=== PATIENT | male | born 1985 | race Two or more races ===

== ENCOUNTER 2025-02-26 11:17 | Inpatient (IN) | payer OTHER ==
[~2025-02-26] VITALS: Ht 180.3 cm; Wt 62.0 kg
--- NOTE | 2025-02-26 12:37 | ED.PDOC ---
GI ASSESSMENT HPI Comments 39 year old male presents to the ED with a chief complaint of abdominal pain onset 4 days. Patient states he ate fish about 4 days ago, began experiencing diffused abdominal pain. About 3 days ago he began experiencing nausea/vomiting, symptoms have worsen since then is also currently experiencing poor appetite. PMHx HTN. Denies diarrhea, constipation, dizziness, chest pain, fever, chills, cough, congestion, hematemesis, melena. No other symptoms or modifying factors present at this time. Chief Complaint: Abdominal Pain Time Seen by MD: 12:19 Primary Care Provider: GISELE Reviewed Notes: Medications, Allergies Allergies: Coded Allergies: NO KNOWN ALLERGIES (Unverified , 02/26/25) Information Source: Patient Mode of Arrival: Ambulatory Timing: Days Duration: Since onset Prehospital treatment: None Quality: Aching Severity: Moderate Recent: None Recent Hx of: None Pain Location: Diffuse Modifying Factors: Nothing Associated sign and symptoms: Nausea, Vomiting, Abdominal Pain Past Medical History PAST MEDICAL HISTORY: HTN Surgical History: Denies all surgeries Family History Family History: Reviewed,noncontributory to illness, No family hx of Cancer, No family hx of DM, No family hx of Heart melissa, No family hx of HTN, No family hx ofKidney melissa, No family hx of Liver melissa, No family hx of Lung melissa, No family hx of Stroke Social History Smoker: Cigarettes Alcohol: Denies ETOH Use Drugs: Marijuana Lives In: Home Constitutional: denies: chills, diaphoresis, fatigue, fever, malaise, sweats, weakness, others EENTM: denies: blurred vision, double vision, ear bleeding, ear discharge, ear drainage, ear pain, ear ringing, eye pain, eye redness, hearing loss, mouth pain, mouth swelling, nasal discharge, nose bleeding, nose congestion, nose pain, photophobia, tearing, throat pain, throat swelling, voice changes, others Respiratory: denies: cough, hemoptysis, orthopnea, SOB at rest, shortness of breath, SOB with excertion, stridor, wheezing, others Cardiovascular: denies: chest pain, dizzy spells, diaphoresis, Dyspnea on exertion, edema, irregular heart beat, left arm pain, lightheadedness, palpitati ons, PND, syncope, others Gastrointestinal: reports: abdominal pain, nausea, vomiting; denies: abdomen distended, blood streaked bowels, constipated, diarrhea, dysphagia, difficulty swallowing, hematemesis, melena, poor appetite, poor fluid intake, rectal bleeding, rectal pain, others Genitourinary: denies: burning, dysuria, flank pain, frequency, hematuria, incontinence, penile discharge, penile sore, pain, testicle pain, testicle swelling, urgency, others Neurological: denies: dizziness, fainting, headache, left sided numbness, left sided weakness, numbness, paresthesia, pre-existing deficit, right sided numbness, right sided weakness, seizure, speech problems, tingling, tremors, weakness, others Musculoskeletal: denies: back pain, gout, joint pain, joint swelling, muscle pain, muscle stiffness, neck pain, others Integumetry: denies: bruises, change in color, change in hair/nails, dryness, laceration, lesions, lumps, rash, wounds, others Allergic/Immunocompromised: denies: Difficulty Healing, Frequent Infections, Hives, Itching, others Hematologic/Lymphatic: denies: anemia, blood clots, easy bleeding, easy bruising, swollen glands, others Endocrine: denies: excessive hunger, excessive sweating, excessive thirst, excessive urination, flushing, intolerance to cold, intolerance to heat, unexplained weight gain, unexplained weight loss, others Psychiatric: denies: anxiety, bipolar disorder, depression, hopeless, panic disorder, schizophrenia, sleepless, suicidal, others All Other Systems: Reviewed and Negative Physical Exam General Appearance: Moderate Distress, Normal HEENT: Normal ENT Inspection, Pharynx Normal, TMs Normal Neck: Full Range of Motion, Non-Tender, Normal, Normal Inspection Respiratory: Chest Non-Tender, Lungs Clear, No Accessory Muscle Use, No Resp iratory Distress, Normal Breath Sounds Cardiovascular: No Edema, No JVD, No Murmur, No Gallop, Normal Peripheral Pulses, Regular Rate/Rhythm Breast Exam: Deferred Gastrointestinal: No Organomegaly, Non Tender, No Pulsatile Mass, Normal Bowel Sounds, Soft Genitalia: Deferred Pelvic: Deferred Rectal: Deferred Extremities: No calf tenderness, Normal capillary refill, Normal inspection, Normal range of motion, Non-tender, No pedal edema Musculoskeletal : Apperance: Normal Neurologic: Alert, golf club assembler II-XII nml as Tested, No Motor Deficits, Normal Affect, Normal Mood, No Sensory Deficits Cerebellar Function: Normal Reflexes: Normal Skin: Dry, Normal Color, Warm Peripheral Pulses: 3+ Radial (R), 3+ Radial (L) Lymphatic: No Adenopathy Was a procedure done? Was a procedure done?: No GI differential Dx Differential Diagnosis: Constipation, Diverticular disease, Esophagitis, Gastritis/PUD, Gastroenteritis X-Ray, Labs, Meds, VS Vital Signs Date Time Temp Pulse Resp B/P (MAP) Pulse Ox O2 Delivery O2 Flow Rate FiO2 02/26/25 16:35 84 18 111/87 (95) 100 02/26/25 11:17 97.9 76 15 134/64 (87) 97 97.9 Lab Test 02/26/25 13:07 02/26/25 12:55 Range/Units White Blood Count 3.9 L 4.4-10.8 10^3/uL Red Blood Count 5.51 4.5-5.90 10^6/uL Hemoglobin 17.0 13.5-17.5 g/dL Hematocrit 49.3 41.0-53.0 % Mean Corpuscular Volume 89.5 80.0-100.0 fL Mean Corpuscular Hemoglobin 30.8 28.0-32.0 pg Mean Corpuscular Hemoglobin Concent 34.4 32.0-36.0 g/dL Red Cell Distribution Width 13.5 11.8-14.3 % Platelet Count 224 140-450 10^3/uL Mean Platelet Volume 9.2 6.9-10.8 fL Neutrophils (%) (Auto) 47.7 37.0-80.0 % Lymphocytes (%) (Auto) 41.6 10.0-50.0 % Monocytes (%) (Auto) 9.5 0.0-12.0 % Eosinophils (%) (Auto) 0.8 0.0-7.0 % Basophils (%) (Auto) 0.4 0.0-2.0 % Neutrophils # (Auto) 1.8 1.6-8.6 10 ^3/uL Lymphocytes # (Auto) 1.6 0.4-5.4 10 ^3/uL Monocytes # (Auto) 0.4 0-1.3 10 ^3/uL Eosinophils # (Auto) 0 0-0.8 10 ^3/uL Basophils # (Auto) 0 0-0.2 10 ^3/uL Nucleated Red Blood Cells 0.1 % Sodium Level 138 136-145 mmol/L Potassium Level 3.8 3.5-5.1 mmol/L Chloride Level 97 L 98-107 mmol/L Carbon Dioxide Level 34 H 20-31 mmol/L Anion Gap 7 5-15 Blood Urea Nitrogen 21 9-23 mg/dL Creatinine 1.17 0.700-1.30 mg/dL Glomerular Filtration Rate Calc 81 >90 mL/min BUN/Creatinine Ratio 17.9 10.0-20.0 Serum Glucose 97 74-106 mg/dL Calcium Level 10.5 H 8.7-10.4 mg/dL Urine Opiates Screen Neg NEGATIVE Urine Fentanyl Screen Neg NEGATIVE Urine Barbiturates Screen Neg NEGATIVE Urine Phencyclidine Screen Neg NEGATIVE Urine Amphetamines Screen Neg NEGATIVE Urine Benzodiazepines Screen Neg NEGATIVE Urine Cocaine Screen Neg NEGATIVE Urine Cannabinoids Screen Pos NEGATIVE Patient alert. Complaining of abdominal pain. CO2 elevated. Vitals stable. Answering all questions. Continues to have abdominal pain. Smokes marijuana. Explained to the patient but the affects of marijuana. Establish intravenous access. Was given fluids. Was given Flagyl. Continue to monitor. Time of 1ST Reevaluation: 12:49 Reevaluation 1ST: Unchanged Patient Education/Counseling: Diagnosis, Treatment, Prognosis Family Education/Counseling: No Family Present SEPSIS Sepsis Screen Date sepsis recognized/suspect: Feb 26, 2025 Time Sepsis recognized/suspect: 1117 Recent Procedure: No On Antibiotic Therapy: No Respiratory Rate >20: No Heart Rate >90: No Temp<36 C (96.8 F) or >38.3 C: No SBP <90 or MAP <65 mmHG: No New Acute Mental Status Change: No Is the patient on CPAP, BIPAP,: No Vital Signs Date Time Temp Pulse Resp B/P (MAP) Pulse Ox O2 Delivery O2 Flow Rate FiO2 02/26/25 16:35 84 18 111/87 (95) 100 02/26/25 11:17 97.9 76 15 134/64 (87) 97 97.9 Laboratory Tests Test 02/26/25 13:07 White Blood Count 3.9 10^3/uL (4.4-10.8) L Departure 1 Departure Time of Disposition: 17:15 Impression: Primary Impression: Non-specific colitis Additional Impression: Gastroenteritis Disposition: 09 ADMITTED INPATIENT Admit to: Med Surg Condition: Guarded Critical Care Note Critical Care Time?: No Stability Stability form required: No Heart Score Heart Score: Heart Score Response (Comments) Value History N/A 0 EKG N/A 0 Age N/A 0 Risk Factors N/A 0 Troponin N/A 0 Total 0 I personally scribed for HUGO HARP MD ([email or web address]) on 02/26/25 at 12:37. Electronically submitted by Flori Reinoso ([email or web address]). HUGO HARP MD Feb 26, 2025 12:37
[2025-02-26 13:23] LABS: Cannabinoid Screen, Urine Pos (NEGATIVE)
[2025-02-26 13:25] LABS: Amphetamine Screen, Urine Neg (NEGATIVE); Barbiturate Scree,Urine Neg (NEGATIVE); Benzodiazephine Screen, Urine Neg (NEGATIVE); Cocaine Screen, Urine Neg (NEGATIVE); Opiate Scree,Urine Neg (NEGATIVE); Phencyclidine Screen, Urine Neg (NEGATIVE)
[2025-02-26 13:27] LABS: Hematocrit 49.3 % (41.0-53.0); Hemoglobin 17.0 g/dL (13.5-17.5); Mean Corpuscular Hemoglobin 30.8 pg (28.0-32.0); Mean Corpuscular Volume 89.5 fL (80.0-100.0); Nucleated Red Blood Cells % 0.1 %
[2025-02-26 13:31] LABS: Potassium 3.8 mmol/L (3.5-5.1); Sodium 138 mmol/L (136-145)
[2025-02-26 13:32] LABS: Anion Gap 7 (5-15)
[2025-02-26 13:37] LABS: BUN/Creatinine Ratio 17.9 (10.0-20.0); Blood Urea Nitrogen 21 mg/dL (9-23); Glucose 97 mg/dL (74-106)
[2025-02-26 13:38] LABS: Calcium 10.5 mg/dL (8.7-10.4); Carbon Dioxide 34 mmol/L (20-31); Chloride 97 mmol/L (98-107)
[2025-02-26] MEDS ORDERED: MORPHINE SULFATE 4 MG/ML SYR/VIAL IV ONE (17:30)
[2025-02-26] MEDS ORDERED: SODIUM CHLORIDE 0.9% 1,000 ML IV ONE (17:30)
[2025-02-26] MEDS: ONDANSETRON HCL 4 MG/2 ML VIAL IV ONE (17:55)
[2025-02-26] MEDS: SODIUM CHLORIDE 0.9% 1,000 ML IV ONE ×2 (17:55→23:42)
--- NOTE | 2025-02-26 18:40 | DVH ---
Exam: CT CT AB PEL WO CON-NO ORAL OR IV History: colitis Comparison Study: None Technique: Multidetector spiral CT of the abdomen was performed from lung bases to pubic symphysis. Imaging was performed without IV contrast. Axial, coronal and sagittal multiplanar reformats were ob tained from the axial data set by the technologist. Radiation Dose : 1. Abdomen/Pelvis: CTDIvol 5.1 mGy, DLP 252 mGy*cm. Findings: Evaluation of solid organs is limited due to lack of intravenous contrast use. Lung Bases: No acute or significant lung base finding. Normal heart size. No pleural or pericardial effusion. Liver: The liver is normal in size. No focal lesions. Gallbladder and Biliary Tree: Unremarkable Spleen: Unremarkable Pancreas: The pancreas is grossly normal in appearance. Adrenal Glands: Unremarkable Kidneys: No renal calculi or hydronephrosis. There is a 1.7 cm cyst along the left superior renal po le. Bladder: Grossly unremarkable for degree of distention. Bowel: Evaluation of the gastrointestinal tract is limited secondary to minimal intraperitoneal fat a nd lack of contrast. The stomach and proximal duodenum are moderately distended with fluid. No signif icant small or large bowel dilation. No definite bowel wall thickening. A tubular structure is noted in the right lower quadrant which likely represents a normal appendix. There are no secondary signs o f acute appendicitis. Ascites: Absent Lymphadenopathy: No mesenteric, retroperitoneal or periportal lymphadenopathy. Abdominal Wall and Mesentery: Unremarkable. Vasculature: The visualized abdominal aorta is normal in size and caliber. Evaluation of abdominal a nd pelvic vessels is limited due to lack of intravenous contrast. Pelvic Organs: Unremarkable Musculoskeletal: No aggressive focal bony lesions, acute fractures or dislocation. IMPRESSION: No acute abdominal or pelvic findings. Limited evaluation of the gastrointestinal tract due to minimal intraperitoneal fat and lack of contr ast. There is no evidence of bowel obstruction and no definite bowel wall thickening. Radiation optimization: All CT scans at this facility use at least one of these dose optimization brandon hniques: automated exposure control mA and/or kV adjustment per patient size (includes targeted exam s where dose is matched to clinical indication) or iterative reconstruction.
[2025-02-26] MEDS ORDERED: MORPHINE SULFATE INJ 2 MG/ml SYRG IV PRN (19:00)
[2025-02-26] MEDS ORDERED: ACETAMINOPHEN 325 MG TAB PO PRN (19:00)
[2025-02-26] MEDS ORDERED: TEMAZEPAM 15 MG CAP PO PRN (19:00)
[2025-02-26] MEDS ORDERED: ONDANSETRON HCL 4 MG/2 ML VIAL IV PRN (19:00)
[2025-02-26] MEDS ORDERED: HYDROcodone-ACET 5/325MG TAB PO PRN (19:00)
--- NOTE | 2025-02-26 22:11 | DVHHP2 ---
History of Present Illness Reason for Visit: Abdominal pain History of Present Illness 39-year-old male presents for evaluation of abdominal pain. Patient endorses a four day history of sharp pain at the center of his abdomen with associated nausea, vomiting and occasional loose stools. Denies fever or chills. No other acute complaints reported. Past Medical History Hypertension Past Surgical History Denies Family History Noncontributory Smoke: <1 pack per day ALCOHOL: none Drugs: Marijuana Lives: with Family Review of Systems Review of Systems Review of systems are currently negative otherwise addressed in HPI. Allergies: Coded Allergies: NO KNOWN ALLERGIES (Unverified , 02/26/25) Medications Current Medications Medications Dose Ordered Sig/Coleen Route Start Time Stop Time Status Last Admin Dose Admin Pantoprazole Sodium 40 mg DAILY IV 02/27/25 10:00 Acetaminophen/ Hydrocodone Bitart 1 tab Q4HP PRN PO 02/26/25 19:00 Temazepam 15 mg QHSP PRN PO 02/26/25 19:00 Ondansetron HCl 4 mg Q4HP PRN IV 02/26/25 19:00 Acetaminophen 650 mg Q6HP PRN PO 02/26/25 19:00 Morphine Sulfate 2 mg Q6HPRN PRN IV 02/26/25 19:00 Exam Vital Signs Vital Signs Date Time Temp Pulse Resp B/P (MAP) Pulse Ox O2 Delivery O2 Flow Rate FiO2 02/26/25 20:33 97.7 68 16 120/75 (90) 99 97.7 Exam Gen: 39-year-old male in mild distress Skin: Warm, dry, normal color and texture, no rash. HEENT: Normocephalic atraumatic, mucous membranes moist and pink. Neck: Cervical and supraclavicular nodes normal without enlargement, trachea is midline, thyroid gland is normal without masses. Pulmonary: Clear to auscultation and percussion bilaterally. Cardiac: Regular rate and rhythm. No murmur Abdomen: Soft, nontender, nondistended, bowel sounds present all 4 quadrants, no guarding, no rigidity, no organomegaly. Extremities: No cyanosis, clubbing, no edema Neuro: Cranial nerves II through XII grossly intact, normal affect and speech, no focal motor deficits. Labs/Xrays ORDERING PHYSICIAN: HUGO HARP MD PROCEDURE(s): ABPL - CT AB PEL WO CON-NO ORAL OR IV REASON: colitis ORDER NUMBER(s): [id number], ACCESSION NUMBER(s): [id number] Exam: CT CT AB PEL WO CON-NO ORAL OR IV History: colitis Comparison Study: None Technique: Multidetector spiral CT of the abdomen was performed from lung bases to pubic symphysis. Imaging was performed without IV contrast. Axial, coronal and sagittal multiplanar reformats were obtained from the axial data set by the technologist. Radiation Dose : 1. Abdomen/Pelvis: CTDIvol 5.1 mGy, DLP 252 mGy*cm. Findings: Evaluation of solid organs is limited due to lack of intravenous contrast use. Lung Bases: No acute or significant lung base finding. Normal heart size. No pleural or pericardial effusion. Liver: The liver is normal in size. No focal lesions. Gallbladder and Biliary Tree: Unremarkable Spleen: Unremarkable Pancreas: The pancreas is grossly normal in appearance. Adrenal Glands: Unremarkable Kidneys: No renal calculi or hydronephrosis. There is a 1.7 cm cyst along the left superior renal pole. Bladder: Grossly unremarkable for degree of distention. Bowel: Evaluation of the gastrointestinal tract is limited secondary to minimal intraperitoneal fat and lack of contrast. The stomach and proximal duodenum are moderately distended with fluid. No significant small or large bowel dilation. No definite bowel wall thickening. A tubular structure is noted in the right lower quadrant which likely represents a normal appendix. There are no secondary signs of acute appendicitis. Ascites: Absent Lymphadenopathy: No mesenteric, retroperitoneal or periportal lymphadenopathy. Abdominal Wall and Mesentery: Unremarkable. Vasculature: The visualized abdominal aorta is normal in size and caliber. Eval uation of abdominal and pelvic vessels is limited due to lack of intravenous contrast. Pelvic Organs: Unremarkable Musculoskeletal: No aggressive focal bony lesions, acute fractures or dislocation. IMPRESSION: No acute abdominal or pelvic findings. Limited evaluation of the gastrointestinal tract due to minimal intraperitoneal fat and lack of contrast. There is no evidence of bowel obstruction and no definite bowel wall thickening. Radiation optimization: All CT scans at this facility use at least one of these dose optimization techniques: automated exposure control mA and/or kV adjustment per patient size (includes targeted exams where dose is matched to clinical indication) or iterative reconstruction. Labs Test 02/26/25 13:07 02/26/25 12:55 Range/Units White Blood Count 3.9 L 4.4-10.8 10^3/uL Red Blood Count 5.51 4.5-5.90 10^6/uL Hemoglobin 17.0 13.5-17.5 g/dL Hematocrit 49.3 41.0-53.0 % Mean Corpuscular Volume 89.5 80.0-100.0 fL Mean Corpuscular Hemoglobin 30.8 28.0-32.0 pg Mean Corpuscular Hemoglobin Concent 34.4 32.0-36.0 g/dL Red Cell Distribution Width 13.5 11.8-14.3 % Platelet Count 224 140-450 10^3/uL Mean Platelet Volume 9.2 6.9-10.8 fL Neutrophils (%) (Auto) 47.7 37.0-80.0 % Lymphocytes (%) (Auto) 41.6 10.0-50.0 % Monocytes (%) (Auto) 9.5 0.0-12.0 % Eosinophils (%) (Auto) 0.8 0.0-7.0 % Basophils (%) (Auto) 0.4 0.0-2.0 % Neutrophils # (Auto) 1.8 1.6-8.6 10 ^3/uL Lymphocytes # (Auto) 1.6 0.4-5.4 10 ^3/uL Monocytes # (Auto) 0.4 0-1.3 10 ^3/uL Eosinophils # (Auto) 0 0-0.8 10 ^3/uL Basophils # (Auto) 0 0-0.2 10 ^3/uL Nucleated Red Blood Cells 0.1 % Sodium Level 138 136-145 mmol/L Potassium Level 3.8 3.5-5.1 mmol/L Chloride Level 97 L 98-107 mmol/L Carbon Dioxide Level 34 H 20-31 mmol/L Anion Gap 7 5-15 Blood Urea Nitrogen 21 9-23 mg/dL Creatinine 1.17 0.700-1.30 mg/dL Glomerular Filtration Rate Calc 81 >90 mL/min BUN/Creatinine Ratio 17.9 10.0-20.0 Serum Glucose 97 74-106 mg/dL Calcium Level 10.5 H 8.7-10.4 mg/dL Urine Opiates Screen Neg NEGATIVE Urine Fentanyl Screen Neg NEGATIVE Urine Barbiturates Screen Neg NEGATIVE Urine Phencyclidine Screen Neg NEGATIVE Urine Amphetamines Screen Neg NEGATIVE Urine Benzodiazepines Screen Neg NEGATIVE Urine Cocaine Screen Neg NEGATIVE Urine Cannabinoids Screen Pos NEGATIVE SEPSIS Sepsis Screen Date sepsis recognized/suspect: Feb 26, 2025 Time Sepsis recognized/suspect: 1116 Recent Procedure: No On Antibiotic Therapy: No Respiratory Rate >20: No Heart Rate >90: No Temp<36 C (96.8 F) or >38.3 C: No SBP <90 or MAP <65 mmHG: No New Acute Mental Status Change: No Is the patient on CPAP, BIPAP,: No Physician Orders Ct Ab Pel Wo Con-No Oral Or Iv (02/26/25 17:16) Pantoprazole (Protonix) (02/27/25 10:00) Sodium Chloride 0.9% (02/26/25 19:00) Basic Metabolic Panel (02/27/25 04:00) Admit (02/26/25 18:58) Hydrocodone-Acet 5/325mg Tab ([place] 5/32 (02/26/25 19:00) Temazepam (Restoril) (02/26/25 19:00) Ondansetron Hcl (Zofran) (02/26/25 19:00) Condition: Stable (02/26/25 18:58) Acetaminophen Tablet (Tylenol Tablet) (02/26/25 19:00) Clear Liq Diet (02/27/25 Breakfast) Bedrest With Bathroom Privileg (02/26/25 18:58) Morphine Sulfate Injection (02/26/25 19:00) Vital Signs Date Time Temp Pulse Resp B/P (MAP) Pulse Ox O2 Delivery O2 Flow Rate FiO2 02/26/25 20:33 97.7 68 16 120/75 (90) 99 97.7 02/26/25 16:35 84 18 111/87 (95) 100 Laboratory Tests Test 02/26/25 13:07 White Blood Count 3.9 10^3/uL (4.4-10.8) L Medications Medications Dose Ordered Sig/Coleen Route Start Time Stop Time Status Last Admin Dose Admin Metronidazole 100 ml @ 100 mls/hr ONCE ONCE IV 02/26/25 17:30 02/26/25 18:29 DC 02/26/25 17:55 100 MLS/HR Ondansetron HCl 4 mg ONCE ONCE IV 02/26/25 17:30 02/26/25 17:31 DC 02/26/25 17:55 4 MG Sodium Chloride 1,000 ml @ 1,000 mls/hr Q1H ONCE IV 02/26/25 17:30 02/26/25 18:29 DC 02/26/25 17:55 1,000 MLS/HR Assessment/Plan Assessment/Plan Assessment Acute abdominal pain Possible acute gastroenteritis Plan Admit the patient to [facility] surge to the hospitalist Maintenance IV fluids Pain management Protonix/Zofran Continue treatment per orders. Plan discussed with: Patient My Orders Orders - GENEVIEVE VERA Procedure Category Date Status Time Pantoprazole PHA 02/27/25 In Process (Protonix) 10:00 Sodium Chloride 0.9% PHA 02/26/25 In Process 19:00 Basic Metabolic Panel LAB 02/27/25 Verified 04:00 Admit ADMIT 02/26/25 Transmitted 18:58 Hydrocodone-Acet PHA 02/26/25 In Process 5/325mg Tab ([place] 19:00 Temazepam (Restoril) PHA 02/26/25 In Process 19:00 Ondansetron Hcl PHA 02/26/25 In Process (Zofran) 19:00 Condition: Stable CHARLES 02/26/25 In Process 18:58 Acetaminophen Tablet PHA 02/26/25 In Process (Tylenol Tablet) 19:00 Clear Liq Diet DIET 02/27/25 Transmitted Breakfast Bedrest With Bathroom CHARLES 02/26/25 In Process Privileg 18:58 Morphine Sulfate PHA 02/26/25 In Process Injection 19:00 Date of Service: Feb 26, 2025 Billing Provider: GENEVIEVE VERA Common Visit Codes: [id number] INP/OBS CARE (MOD) GENEVIEVE VERA Feb 26, 2025 22:11
[2025-02-26 23:11] VITALS: PULSE 65; RESP 14; O2SAT 100
[2025-02-26 23:33] VITALS: PULSE 60; RESP 18; O2SAT 97
[2025-02-27 01:00] VITALS: BP 124/74; PULSE 61; RESP 18; TEMP 99; O2SAT 98
[2025-02-27 05:00] VITALS: BP 147/98; PULSE 63; RESP 17; TEMP 98.6; O2SAT 100
[2025-02-27 07:57] LABS: Chloride 101 mmol/L (98-107); Potassium 3.5 mmol/L (3.5-5.1); Sodium 140 mmol/L (136-145)
[2025-02-27 07:58] LABS: Anion Gap 9 (5-15); Calcium 9.7 mg/dL (8.7-10.4); Carbon Dioxide 30 mmol/L (20-31)
[2025-02-27 08:03] LABS: BUN/Creatinine Ratio 18.5 (10.0-20.0); Blood Urea Nitrogen 17 mg/dL (9-23); Glucose 91 mg/dL (74-106)
[2025-02-27 09:00] VITALS: BP 120/78; PULSE 66; RESP 18; TEMP 97.9; O2SAT 96
[2025-02-27] MEDS: PANTOPRAZOLE 40 MG/10 ML VIAL INJ IV SCH (09:15)
--- NOTE | 2025-02-27 10:16 | DVHPN2 ---
Progress Note Date Seen: Feb 27, 2025 Medical Necessity Reason Pt with a Central, PICC or Fol: No Subjective Patient reports: No new complaints Review of Systems: HEENT:Normal, CVS:Normal, RESPIRATORY:Normal, GI:Normal, :Normal, MSK:Normal, NEURO:Normal Objective vital signs Vital Sign Date Time Temp Pulse Resp B/P (MAP) Pulse Ox O2 Delivery O2 Flow Rate FiO2 02/27/25 08:15 Room Air* 0 21 02/27/25 05:00 98.6 63 17 147/98 (114) 100 98.6 Total Intake and Output 02/26/25 02/26/25 02/27/25 15:00 23:00 07:00 Output Total 0 ml Balance 0 ml medications Current Medications Medications Dose Ordered Sig/Coleen Route Start Time Stop Time Status Last Admin Dose Admin Pantoprazole Sodium 40 mg DAILY IV 02/27/25 10:00 02/27/25 09:15 40 MG Acetaminophen/ Hydrocodone Bitart 1 tab Q4HP PRN PO 02/26/25 19:00 Temazepam 15 mg QHSP PRN PO 02/26/25 19:00 Ondansetron HCl 4 mg Q4HP PRN IV 02/26/25 19:00 Acetaminophen 650 mg Q6HP PRN PO 02/26/25 19:00 Morphine Sulfate 2 mg Q6HPRN PRN IV 02/26/25 19:00 Examination: GENERAL:Normal, HEENT:Normal, NECK:Normal, LUNGS:Normal, CVS:Normal, ABDOMEN:Normal, MSK:Normal, SKIN:Normal, NEURO:Normal, :Normal laboratory and microbiology Laboratory Tests 02/27/25 06:24 02/26/25 13:07 Test 02/27/25 06:24 Range/Units Serum Glucose 91 74-106 mg/dL Problem List/Assessment/Plan Problem List/Assessment/Plan #1 abd pain ?acute ge: ppi, advance diet #2 ?htn #3 ptsd #4 tobacco abuse: advised to quit, refused nicotine patch- time spent 11 mins Plan discussed with: Patient My Orders My Orders Orders - GENEVIEVE KANG MD Procedure Category Date Status Time Regular Diet DIET 02/27/25 Transmitted Lunch Urinalysis LAB 02/27/25 Uncollected 10:11 Lipase LAB 02/27/25 Transmitted 10:11 Complete Blood Count LAB 02/28/25 Verified 06:00 Comprehensive LAB 02/28/25 Verified Metabolic Panel 06:00 Date of Service: Feb 27, 2025 Billing Provider: GENEVIEVE KANG MD Common Visit Codes: [id number] INP/OBS CARE(HIGH) Secondary Visit Codes: [id number] CHNG SMOKING >10MIN GENEVIEVE KANG MD Feb 27, 2025 10:16
[2025-02-27] MEDS ORDERED: MIRT-94 PO (10:18)
[2025-02-27] MEDS ORDERED: HYDRX10T PO (10:18)
[2025-02-27] MEDS ORDERED: PROP60CA34 PO (10:18)
[2025-02-27 16:26] LABS: Urine Protein, UAD TRACE (Negative)
[2025-02-27 17:00] VITALS: BP 112/77; PULSE 78; RESP 18; TEMP 97.7; O2SAT 96
[2025-02-27 21:00] VITALS: BP 118/83; PULSE 77; RESP 18; TEMP 98.2; O2SAT 99
[2025-02-27] MEDS: MIRTAZAPINE 30 MG TAB PO SCH (22:34)
[2025-02-28 01:00] VITALS: BP 112/71; PULSE 60; RESP 17; TEMP 98.5; O2SAT 97
[2025-02-28 05:00] VITALS: BP 115/81; PULSE 63; RESP 18; TEMP 99; O2SAT 100
[2025-02-28 07:44] LABS: Hematocrit 41.5 % (41.0-53.0); Hemoglobin 14.4 g/dL (13.5-17.5); Mean Corpuscular Hemoglobin 31.2 pg (28.0-32.0); Mean Corpuscular Volume 89.8 fL (80.0-100.0); Nucleated Red Blood Cells % 0.0 %
[2025-02-28 07:48] LABS: Alanine Aminotransferase 15 U/L (7-40); Anion Gap 7 (5-15); BUN/Creatinine Ratio 13.7 (10.0-20.0); Blood Urea Nitrogen 14 mg/dL (9-23); Calcium 9.4 mg/dL (8.7-10.4); Chloride 103 mmol/L (98-107); Glucose 86 mg/dL (74-106); Potassium 3.8 mmol/L (3.5-5.1); Sodium 141 mmol/L (136-145); Total Protein 6.1 g/dL (5.7-8.2)
[2025-02-28 07:49] LABS: Albumin 3.9 g/dL (3.2-4.8); Bilirubin, Total 0.7 mg/dL (0.2-1.0)
[2025-02-28 07:50] LABS: Alkaline Phosphatase 44 U/L (46-116); Carbon Dioxide 31 mmol/L (20-31)
[2025-02-28 08:30] VITALS: PULSE 71; RESP 17; O2SAT 100
[2025-02-28 09:00] VITALS: BP 120/79; PULSE 71; RESP 17; TEMP 97.4; O2SAT 100
--- NOTE | 2025-02-28 10:32 | DVHDS2 ---
Discharge Summary Date of Admission Feb 26, 2025 at 18:58 Date of Discharge: Feb 28, 2025 Labs/Diagnostic Data: Laboratory Results Test 02/28/25 06:13 02/27/25 15:30 02/27/25 11:04 02/27/25 10:11 White Blood Count 3.7 10^3/uL (4.4-10.8) Red Blood Count 4.62 10^6/uL (4.5-5.90) Hemoglobin 14.4 g/dL (13.5-17.5) Hematocrit 41.5 % (41.0-53.0) Mean Corpuscular Volume 89.8 fL (80.0-100.0) Mean Corpuscular Hemoglobin 31.2 pg (28.0-32.0) Mean Corpuscular Hemoglobin Concent 34.7 g/dL (32.0-36.0) Red Cell Distribution Width 13.0 % (11.8-14.3) Platelet Count 161 10^3/uL (140-450) Mean Platelet Volume 9.6 fL (6.9-10.8) Neutrophils (%) (Auto) 40.8 % (37.0-80.0) Lymphocytes (%) (Auto) 45.3 % (10.0-50.0) Monocytes (%) (Auto) 10.7 % (0.0-12.0) Eosinophils (%) (Auto) 2.7 % (0.0-7.0) Basophils (%) (Auto) 0.5 % (0.0-2.0) Neutrophils # (Auto) 1.5 10 ^3/uL (1.6-8.6) Lymphocytes # (Auto) 1.7 10 ^3/uL (0.4-5.4) Monocytes # (Auto) 0.4 10 ^3/uL (0-1.3) Eosinophils # (Auto) 0.1 10 ^3/uL (0-0.8) Basophils # (Auto) 0 10 ^3/uL (0-0.2) Nucleated Red Blood Cells 0.0 % Sodium Level 141 mmol/L (136-145) Potassium Level 3.8 mmol/L (3.5-5.1) Chloride Level 103 mmol/L (98-107) Carbon Dioxide Level 31 mmol/L (20-31) Anion Gap 7 (5-15) Blood Urea Nitrogen 14 mg/dL (9-23) Creatinine 1.02 mg/dL (0.700-1.30) Glomerular Filtration Rate Calc 95 mL/min (>90) BUN/Creatinine Ratio 13.7 (10.0-20.0) Serum Glucose 86 mg/dL (74-106) Calcium Level 9.4 mg/dL (8.7-10.4) Total Bilirubin 0.7 mg/dL (0.2-1.0) Aspartate Amino Transferase (AST) 16 U/L (13-40) Alanine Aminotransferase (ALT) 15 U/L (7-40) Alkaline Phosphatase 44 U/L (46-116) Total Protein 6.1 g/dL (5.7-8.2) Albumin 3.9 g/dL (3.2-4.8) Urine Color Yellow (Yellow) Urine Clarity Clear (Clear) Urine pH 7.5 (5.0-9.0) Urine Specific [place] 1.035 (1.001-1.035) Urine Protein Trace (Negative) Urine Ketones 1+ (Negative) Urine Blood Negative /uL (Negative) Urine Nitrite Negative (Negative) Urine Bilirubin Negative (Negative) Urine Urobilinogen 8 mg/dL (Negative) Urine Leukocyte Esterase Negative /uL (Negative) Urine RBC 2 /hpf (0 - 3) Urine Microscopic WBC 4 /HPF (0-3) Urine Squamous Epithelial Cells Few /hpf (<5) Urine Bacteria None seen /hpf (None Seen) Urine Mucus Few (None Seen) Urine Glucose Normal mg/dL (Normal) POC Glucose 93 mg/dl (70-106) Lipase 319 U/L (12-53) Test 02/26/25 12:55 Urine Opiates Screen Neg (NEGATIVE) Urine Fentanyl Screen Neg (NEGATIVE) Urine Barbiturates Screen Neg (NEGATIVE) Urine Phencyclidine Screen Neg (NEGATIVE) Urine Amphetamines Screen Neg (NEGATIVE) Urine Benzodiazepines Screen Neg (NEGATIVE) Urine Cocaine Screen Neg (NEGATIVE) Urine Cannabinoids Screen Pos (NEGATIVE) Other Laboratory Tests 02/28/25 06:13 Brief Hx & Hospital Course: see dictated note Condition at Discharge: Good Final Diagnosis/Problems List acute pancreatitis Discharge Disposition: Home Discharge Instruct/Medications Diet: Regular Activity: No Restrictions, As Tolerated Follow Up/Referral: fu with pcp in 1 wk Medications: resume home meds Scheduled Hydroxyzine Hcl (Hydroxyzine Hcl), 10 MG PO PRN, (Reported) Propranolol Hcl (Inderal La), 10 MG PO PRN, (Reported) Miscellaneous Medications Mirtazapine (Remeron), 15 MG PO, (Reported) Discharge Statement: "Patient was advised to return to the ER or call 911 if any headaches, dizziness, shortness of breath, chest pain, abdominal pain, bleeding, fevers, or worsening of medical condition. Patient was counseled about treatment plan, medications, possible side effects, patientverbalized understanding. All questions were answered to the best of my ability. This discharge took greater then 30 minutes in planning, reviewing documentation, counseling the patient, and discussing with other team members." ASSESSMENT ASSESSMENT Assessment acute pancreatitis Date of Service: Feb 28, 2025 Billing Provider: GENEVIEVE KANG MD Common Visit Codes: 23265-ZMY/OBS DISCH DAY >30min GENEVIEVE KANG MD Feb 28, 2025 10:32
--- NOTE | 2025-02-28 10:44 | DVHDS ---
DATE OF DISCHARGE: 02/28/2025 HISTORY OF PRESENT ILLNESS: The patient is a 39-year-old gentleman who was admitted with complaints of abdominal pain, nausea, and vomiting and a previous history of hypertension. HOSPITAL COURSE: The patient had a mildly elevated amylase of 319. The patient had a CT of the abdomen and pelvis that showed pancreas that was grossly normal and a gallbladder that was unremarkable. The patient's pain is now improved and he is tolerating an oral diet. The patient will be discharged home [facility] and resume the rest of his home medications. FINAL DIAGNOSES: * Likely acute pancreatitis. * PTSD. * Tobacco abuse. * Questionable hypertension. Time spent in discharge planning and review of plan with the patient and nursing was 37 minutes. MD SHADE Vaughn/EBENEZER TID: [id number] RECEIPT: [id number]
[2025-02-28 11:17] VITALS: BP 120/79; PULSE 71; RESP 17; TEMP 97.4; O2SAT 100
== END 2025-02-28 11:45 | disposition home or self-care (01) | DRG 391 ==
LOC: ER 11:17 → OVERFLOW 18:58 → TELE-CENTR 19:00 → CENTRAL 02-27 08:57
PROVIDERS: ADMIT Internal Medicine; ATTEND Internal Medicine
DX: K52.9 Noninfective gastroenteritis and colitis, unspecified (principal); K85.90 Acute pancreatitis without necrosis or infection, unspecified; F43.10 Post-traumatic stress disorder, unspecified; I10 Essential (primary) hypertension; F17.210 Nicotine dependence, cigarettes, uncomplicated
CPT/HCPCS: 36415; 74176; 80048; 80053; 80307; 81001; 82962; 83690; 85025; 96365; G0378; J2405; J2470; J3490